=== PATIENT | male | born 1995 | race Caucasian/White ===

== ENCOUNTER 2021-09-17 15:15 | Emergency (ER) | payer OTHER ==
[2021-09-17 15:32] VITALS: BP 133/86
== END 2021-09-17 16:47 | disposition home or self-care (01) ==
LOC: ED 15:15
DX: S61.211A Laceration without foreign body of left index finger without damage to nail, initial encounter (principal); W26.9XXA Contact with unspecified sharp object(s), initial encounter; Y92.59 Other trade areas as the place of occurrence of the external cause; Y99.0 Civilian activity done for income or pay